=== PATIENT | female | born 1960 | race Asian ===

== ENCOUNTER 2018-10-12 16:45 | Emergency (ER) | payer BC ==
[2018-10-12] MEDS ORDERED: SODIUM CHLORIDE 1,000 ML IV STA ×2 (16:56→18:06)
[2018-10-12] MEDS ORDERED: ONDANSETRON 4 MG/2 ML VIAL IVPUSH ONE (16:56)
[2018-10-12] MEDS ORDERED: KETOROLAC TROMETHAMINE 30 MG/1 ML VIAL IVPUSH ONE (16:56)
--- NOTE | 2018-10-12 17:05 | PDOC ---
Documentation entered by Viktoria Heath SCRIBE, acting as scribe for Doretha Gibbs MD. Doretha Gibbs MD: This documentation has been prepared by the scribe, Viktoria Heath SCRIBE, under my direction and personally reviewed by me in its entirety. I confirm that the documentation accurately reflects all work, treatment, procedures, and medical decision making performed by me. History of Present Illness - General Chief Complaint: Back Pain Stated Complaint: RT FLANK PAIN History Source: Patient Exam Limitations: No Limitations - History of Present Illness Initial Comments: 10/12/18 17:03 The patient is a 57-year-old female with a past medical history significant for nephrolithiasis presents to the emergency department with right flank pain. The patient presents with an acute worsening of right flank pain. The patient reports since the end of August, shes been having right flank, associated with hematuria. The patient reports following up with a urologist, with unremarkable urine work up. The patient had a CT done on the 02 of October, which was significant for an R. renal, nonobstructing stone. The patient reports the pain was manageable, until today. The patient states she feels contraction while voiding, and reports associated symptoms of nausea and an episode of NBNB emesis. Denies fever or chills. Denies taking any medication for the pain. The patient reports the pain is similar to a prior left-sided renal stone episode. Past History - Past Medical History Allergies/Adverse Reactions: Allergies Allergy/AdvReac Type Severity Reaction Status Date / Time No Known Allergies Allergy Verified 10/12/18 17:04 Home Medications: Ambulatory Orders Glucos Sul 2Kcl/MSM/Chond/C/Mn [Glucosamine Chondroitin Cap] 1 each PO BID 10/12 Ibuprofen [Motrin -] 600 mg PO TID PRN #21 tablet 10/12/18 Ondansetron [Zofran Odt -] 4 mg SL TID PRN #21 od.tablet 10/12/18 Oxycodone HCl/Acetaminophen [Percocet 5-325 mg Tablet] 1 tab PO Q6H PRN #12 tablet MDD 4 tabs 10/12/18 Review of Systems - Review of Systems Able to Perform ROS?: Yes Comments:: 10/12/18 16:55 GENERAL/CONSTITUTIONAL: No fever or chills. No weakness. HEAD, EYES, EARS, NOSE AND THROAT: No change in vision. No ear pain or discharge. No sore throat. CARDIOVASCULAR: No chest pain or shortness of breath. RESPIRATORY: No cough, wheezing, or hemoptysis. GASTROINTESTINAL: +nausea and vomiting. No diarrhea or constipation. GENITOURINARY: +contractions while urinating. No dysuria, frequency in urination. MUSCULOSKELETAL: +right flank pain. No joint or muscle swelling or pain. No neck or back pain. SKIN: No rash NEUROLOGIC: No headache, vertigo, loss of consciousness, or change in strength/ sensation. ENDOCRINE: No increased thirst. No abnormal weight change. HEMATOLOGIC/LYMPHATIC: No anemia, easy bleeding, or history of blood clots. ALLERGIC/IMMUNOLOGIC: No hives or skin allergy. *Physical Exam - Physical Exam Comments: GENERAL: Awake, alert, and fully oriented. Uncomfortable, in obvious pain HEAD: No signs of trauma EYES: PERRLA, EOMI, sclera anicteric, conjunctiva clear ENT: Auricles normal inspection, hearing grossly normal, nares patent, oropharynx clear without exudates. Dry mucosa NECK: Normal ROM, supple, no lymphadenopathy, JVD, or masses LUNGS: Breath sounds equal, clear to auscultation bilaterally. No wheezes, and no crackles HEART: Regular rate and rhythm, normal S1 and S2, no murmurs, rubs or gallops ABDOMEN: Soft, nontender, normoactive bowel sounds. No guarding, no rebound. No masses. +R CVAT EXTREMITIES: Normal range of motion, no edema. No clubbing or cyanosis. No cords, erythema, or tenderness NEUROLOGICAL: Cranial nerves II through XII grossly intact. Normal speech, normal gait. Motor and sensation intact SKIN: Warm, Dry, normal turgor, no rashes or lesions noted. ED Treatment Course - LABORATORY CBC & Chemistry Diagram: 10/12/18 16:45 10/12/18 16:45 Medical Decision Making - Medical Decision Making 10/12/18 16:57 DDx includes stone vs pyelo vs infected stone. Will obtain CT to r/o stone, hydronephrosis. UA to check for infection. IV fluids, antiemetics, and toradol for symptoms while awaiting results. 10/12/18 18:51 Lab results d/w patient. Lower suspicion for UTI based on UA findings. CT reviewed, there appears to be a hyperdense area in the R kidney. Awaiting reading from radiology (has been sent to imaging industrial production manager). 10/12/18 19:21 Kidney cyst was present on prior CT scan from 2018, unchanged. Patient reports improvement in pain, stable for DC home. *DC/Admit/Observation/Transfer Diagnosis at time of Disposition: Kidney stone - Discharge Dispostion Disposition: HOME Condition at time of disposition: Stable Decision to Admit order: No - Prescriptions Prescriptions: Ibuprofen [Motrin -] 600 mg PO TID PRN #21 tablet PRN Reason: Pain Ondansetron [Zofran Odt -] 4 mg SL TID PRN #21 od.tablet PRN Reason: Nausea And/Or Vomiting Oxycodone HCl/Acetaminophen [Percocet 5-325 mg Tablet] 1 tab PO Q6H PRN #12 tablet MDD 4 tabs PRN Reason: Severe Pain - Referrals - Patient Instructions - Post Discharge Activity
[2018-10-12 17:24] LABS: BASO % 0.1 % (0-2.0); EOS % 5.7 % (0-4.5); HEMATOCRIT 43.5 % (32.4-45.2); HEMOGLOBIN 14.4 GM/dl (10.7-15.3); LYMPH % 11.2 % (8-40); MCH 30.7 pg (25.7-33.7); MEAN CELL VOLUME 92.8 fl (80-96); MEAN PLT VOLUME 8.2 fl (7.5-11.1); MONO % 5.7 % (3.8-10.2); NEUT % 77.3 % (42.8-82.8); PLATELET COUNT 244 K/MM3 (134-434); RBC 4.69 M/mm3 (3.60-5.2); RDW 12.2 % (11.6-15.6); WHITE BLOOD COUNT 9.2 K/mm3 (4.0-10.8)
[2018-10-12 17:28] LABS: EPITHELIAL CELLS FEW /hpf
[2018-10-12 17:29] VITALS: BP 152/96; PULSE 88; TEMP 98.6; BMI 21.2
[2018-10-12 17:29] LABS: ALBUMIN 4.1 g/dl (3.4-5.0); AMORP URATES 3+ /hpf (NONE SEEN); BILIRUBIN,TOTAL 1.3 mg/dl (0.2-1); CALCIUM 9.1 mg/dl (8.5-10); CREATININE 0.9 mg/dl (0.55-1.3); POTASSIUM 3.4 mmol/L (3.5-5.1); TOT PROT 6.9 g/dl (6.4-8.2)
== END 2018-10-12 19:33 | disposition home or self-care (01) ==
LOC: FER 16:45
PROC: 3E0333Z Introduction of Anti-inflammatory into Peripheral Vein, Percutaneous Approach (ICD-10-PCS; principal; 2018-10-12)
PROC: 3E033GC Introduction of Other Therapeutic Substance into Peripheral Vein, Percutaneous Approach (ICD-10-PCS; 2018-10-12)
PROC: 3E0337Z Introduction of Electrolytic and Water Balance Substance into Peripheral Vein, Percutaneous Approach (ICD-10-PCS; 2018-10-12)
DX: N20.0 Calculus of kidney (principal)
CPT/HCPCS: 36415; 74176-TC; 80053; 81003; 81015; 83690; 85025; 87086; 99285-25; J7030

== ENCOUNTER 2019-03-31 07:24 | Emergency (ER) | payer BC ==
[2019-03-31 07:34] VITALS: BP 131/98; PULSE 84; TEMP 98.2; BMI 19.2
--- NOTE | 2019-03-31 07:57 | PDOC ---
History of Present Illness - General Chief Complaint: Pain, Acute Stated Complaint: FREQUENT BURPING/GAS SINCE SUNDAY Time Seen by Provider: 03/31/19 07:26 - History of Present Illness Initial Comments: 03/31/19 08:05 58yo female with hx of nephrolithiasis, thyroiditis, afib s/p ablation who presents for eval of burping/belching and flatus that has been constant x 1 week. States she saw her italian teacher - Dr. Sosa at [place] last sunday who changed her from Amlodipine to metoprolol to help treat her thyroiditis. Pt states starting sunday night she started with constant belching, waking her up at night where she has to sit up to burp. Pt states the belching and flatus has been constant and worsened this AM. Denies cp/sob. Denies abd pain. states aching sensation to abd and back, but denies vomiting or diarrhea. States eating anything- saltines even has worsened her symptoms. States she has had an EGD and Colonoscopy in the past because of belching and was told she had diverticular disease, but did not have gerd or acid reflux. States she was told to cut out dairy by her GI in the past and has not had belching this bad in about 5 years. States this all started after she started metoprolol. Pt denies f/c. C/o nausea this AM with the belching and flatus. Denies diarrhea or vomiting. Pmhx: insomnia, diverticular disease, afib, thyroiditis Pshx: atrial ablation, egd, colo, c section, hip labrum repair All: NKDA Meds: cymbalta, metoprolol, ambien, gabapentin Past History - Past Medical History Allergies/Adverse Reactions: Allergies Allergy/AdvReac Type Severity Reaction Status Date / Time No Known Allergies Allergy Verified 03/31/19 07:26 Home Medications: Ambulatory Orders Famotidine [Pepcid] 20 mg PO BID #14 tablet 03/31/19 Gabapentin [Neurontin] 300 mg PO TID 03/31/19 Zolpidem Tartrate [Ambien] 10 mg PO HS 03/31/19 COPD: No Kidney Stones: Yes - Psycho Social/Smoking Cessation Hx Smoking History: Never smoked Have you smoked in the past 12 months: No Information on smoking cessation initiated: No Hx Alcohol Use: No Drug/Substance Use Hx: No Review of Systems - Review of Systems Able to Perform ROS?: Yes Is the patient limited Greenlandic proficient: No Constitutional: No: Chills, Fever HEENTM: No: Nose Pain, Nose Congestion, Throat Pain, Throat Swelling Respiratory: No: Cough, Shortness of Breath Cardiac (ROS): No: Chest Pain, Irregular Heart Rate, Palpitations ABD/GI: Yes: Nausea, Indigestion, Other (belching, flatus). No: Abdominal Distended, Constipated, Diarrhea, Vomiting : No: Burning, Dysuria Musculoskeletal: No: Back Pain Integumentary: No: Pruritus, Rash Neurological: No: Headache, Numbness, Paresthesia All Other Systems: Reviewed and Negative *Physical Exam - Vital Signs Last Vital Signs Temp Pulse Resp BP Pulse Ox 98.2 F 84 16 131/98 99 03/31/19 07:31 03/31/19 07:31 03/31/19 07:31 03/31/19 07:31 03/31/19 07:31 - Physical Exam General Appearance: Yes: Nourished, Appropriately Dressed, Other (actively belching during exam) HEENT: positive: EOMI, Normal Voice Neck: positive: Supple, Other (wearing KT tape to posterior neck ) Respiratory/Chest: positive: Lungs Clear, Normal Breath Sounds. negative: Respiratory Distress Cardiovascular: positive: Regular Rhythm, Regular Rate, S1, S2. negative: Edema Gastrointestinal/Abdominal: positive: Normal Bowel Sounds, Flat, Soft. negative : Guarding, Rebound, Tenderness Musculoskeletal: negative: CVA Tenderness Extremity: positive: Normal Capillary Refill, Normal Range of Motion. negative : Calf Tenderness Integumentary: positive: Normal Color, Dry, Warm Neurologic: positive: Fully Oriented, Alert, Normal Mood/Affect, Normal Response , Motor Strength 5/5 Heart Score/ECG Review - ECG Intrepretation Comment:: 03/31/19 08:12 sinus at 84, nl axis, incomplete RBBB, no acute st/t wave findings ED Treatment Course - LABORATORY CBC & Chemistry Diagram: 03/31/19 08:00 03/31/19 08:00 Medical Decision Making - Medical Decision Making 03/31/19 08:13 a/p: 58yo female with belching and flatus -ekg without acute findings -will check labs, trop, however low risk for acs equivalent -suspect side effect of metoprolol vs acid reflux -will give maalox - contains simethicone to combat gas for symptom control -will discuss with ENDO who started metoprolol -pt is nontoxic in appearance 03/31/19 08:[address] Lexii Villagomez - [phone] Endo: Dr. Melissa Sosa [phone] 03/31/19 08:47 mildly low wbc low potassium, will replace 03/31/19 08:[address] Sosa 03/31/19 08:[address] Sosa - states tsh was minimally low and T3 and T4 were normal. States Graves Disease markers were negative. States she does get anxious and have tachycardia. States she emailed her that she was feeling great on the metoprolol. Recommends stopping metoprolol and discussing restarting amlodipine with PMD - Dr. Villagomez. States if tachy reoccurs to take 1/2 the metoprolol. Keep appt for next month with the italian teacher. 03/31/19 09:[address] Villagomez to discuss the care 03/31/19 09:[address] Villagomez- agrees with stopping metoprolol, restart amlodipine 5mg daily. discussed labs including potassium, wbc, tbili. Dr. Villagomez states she will repeat on . States she wants to see the patient on . 03/31/19 09:54 pt without nausea tolerated po intake bedside ultrasound for elevated tbili does not show gbw thickening, no stones, neg sonographic murphys, neg pericholecystic fluid, no cbd dilatation. R renal stone visualized and discussed in detail with the patient discussed follow up with Dr. Villagomez and her GI dr. Flanagan. Discussed restarting amlodipine and taking pepcid. Discussed all reasons to return to the ED and need for follow up . Answered all questions. Pt stable for dc to home Discharge - Discharge Information Problems reviewed: Yes Clinical Impression/Diagnosis: Belching, Adverse drug effect Condition: Stable Disposition: HOME - Admission No - Additional Discharge Information Prescriptions: Famotidine [Pepcid] 20 mg PO BID #14 tablet - Follow up/Referral Referrals: Ronnie Flanagan MD [Non Staff, Medical] - Lexii Villagomez [Non Staff, Medical] - Melissa Sosa MD [Non Staff, Medical] - - Patient Discharge Instructions Patient Printed Discharge Instructions: How to Avoid Gas Additional Instructions: Please avoid carbonated drinks. Please take small bites to avoid swallowing air. Please stop the metoprolol and restart your amlodipine at 5mg oral daily. Please take the pepcid as directed. Please make an appointment to see your PMD Dr. Villagomez on . Please make an appointment to see your reacher. Please keep your appointment with your italian teacher. Please return to the ER with any further concerns or complaints. Please drink plenty of fluids today. - Post Discharge Activity
[2019-03-31] MEDS ORDERED: MAG HYDROX/AL HYDROX/SIMETH 30 ML UNIT-DOSE CUP PO ONE (08:00)
[2019-03-31] MEDS ORDERED: MAG HYDROX/AL HYDROX/SIMETH 30 ML UNIT-DOSE CUP ONE (08:10)
[2019-03-31 08:30] LABS: HEMOGLOBIN 13.1 GM/dl (10.7-15.3); RDW 12.4 % (11.6-15.6)
[2019-03-31 08:33] LABS: HEMATOCRIT 39.2 % (32.4-45.2); MCH 30.9 pg (25.7-33.7); MCHC 33.3 g/dl (32.0-36.0); MEAN CELL VOLUME 92.9 fl (80-96); PLATELET COUNT 252 K/MM3 (134-434); RBC 4.22 M/mm3 (3.60-5.2); WHITE BLOOD COUNT 2.8 K/mm3 (4.0-10.8)
[2019-03-31 08:38] LABS: ALBUMIN 3.7 g/dl (3.4-5.0); BILIRUBIN,TOTAL 1.8 mg/dl (0.2-1); CREATININE 0.6 mg/dl (0.55-1.3); POTASSIUM 3.1 mmol/L (3.5-5.1); TOT PROT 5.9 g/dl (6.4-8.2)
[2019-03-31] MEDS ORDERED: POTASSIUM CHLORIDE TABS 20 MEQ TABLET.ER (FP) PO ONE ×2 (08:46→09:07)
[2019-03-31 09:51] LABS: PLATELET ESTIMATE ADEQUATE
--- NOTE | 2019-04-01 09:08 | EKG ---
Test Reason : Blood Pressure : / mmHG Vent. Rate : 084 BPM Atrial Rate : 084 BPM P-R Int : 146 ms QRS Dur : 096 ms QT Int : 378 ms P-R-T Axes : 078 082 064 degrees QTc Int : 446 ms NORMAL SINUS RHYTHM POSSIBLE LEFT ATRIAL ENLARGEMENT INCOMPLETE RIGHT BUNDLE BRANCH BLOCK BORDERLINE ECG NO PREVIOUS ECGS AVAILABLE Confirmed by Jerrell Vivas MD ([id number]) on 04/01/2019 9:07:35 AM Referred By: SULEMA PINO Confirmed By:Jerrell Vivas MD
== END 2019-03-31 10:05 | disposition home or self-care (01) ==
LOC: FER 07:24
DX: T88.7XXA Unspecified adverse effect of drug or medicament, initial encounter (principal); T44.7X5A Adverse effect of beta-adrenoreceptor antagonists, initial encounter; Y92.89 Other specified places as the place of occurrence of the external cause; E05.00 Thyrotoxicosis with diffuse goiter without thyrotoxic crisis or storm; F41.9 Anxiety disorder, unspecified; N20.0 Calculus of kidney; E07.9 Disorder of thyroid, unspecified; I48.91 Unspecified atrial fibrillation
CPT/HCPCS: 36415; 80053; 81003; 82550; 84484; 85025; 93005; 99282-25

== ENCOUNTER 2024-11-27 22:31 | Emergency (ER) | payer BC ==
[2024-11-27 22:36] VITALS: BP 180/96; PULSE 100; RESP 16; TEMP 97.9; BMI 19.3
[2024-11-27] MEDS ORDERED: TETRACAINE 0.5% OPHTH SOLN 2 ML BOTTLE ONE (22:37)
[2024-11-27] MEDS ORDERED: FLUORESCEIN NA 1 EA STRIP ONE (22:39)
[2024-11-27] MEDS ORDERED: TOBRAMYCIN 0.3% OPHTH SOLN 5 ML BOTTLE ONE (22:51)
[2024-11-27] MEDS: TOBRA 0.3%/DEXAMETH 0.1% OPHTHALMIC SUSP 2.5 ML BTL OS STA (22:53)
[2024-11-27] MEDS ORDERED: TOBRA 0.3%/DEXAMETH 0.1% OPHTHALMIC SUSP 2.5 ML BTL ONE (22:53)
== END 2024-11-27 22:56 | disposition home or self-care (01) ==
LOC: FER 22:31
DX: S05.02XA Injury of conjunctiva and corneal abrasion without foreign body, left eye, initial encounter (principal); Y77.11 Contact lens associated with adverse incidents
CPT/HCPCS: 99283-25